=== PATIENT | male | born 1950 | race Caucasian/White ===

== ENCOUNTER 2018-05-06 16:04 | Outpatient (REF) | payer MEDICARE, SELFPAY ==
[2018-05-06 21:45] LABS: ALT 21 U/L (12-78); AST 16 U/L (15-37); Albumin 3.6 g/dL (3.4-5.0); Alkaline Phosphatase 74 U/L (46-116); Anion Gap 8.5 mmol/L (3-11); BUN 17 mg/dL (7-18); Bilirubin, Total 0.5 mg/dL (0.2-1.0); CO2 29.5 mmol/L (21.0-32.0); CREATININE 1.25 mg/dL (0.70-1.30); Calcium 9.5 mg/dL (8.5-10.1); Chloride 103 mmol/L (98-107); Cholesterol 180 mg/dL (50-200); Estimated GFR 57.79 (mL/min/1.73m2); Glucose 127 mg/dL (70-100); HDL Cholesterol 53 mg/dL (40-60); LDL CHOLESTEROL 111 mg/dL (<100); Potassium 4.4 mmol/L (3.5-5.1); Sodium 141 mmol/L (136-145); Total Protein 6.8 g/dL (6.4-8.2); Triglyceride 69 mg/dL (30-150)
[2018-05-08 11:08] LABS: Hepatitis C Ab w Rflx HCV PCR Negative (NEGAT)
== END 2018-05-06 16:24 ==
LOC: NCHCN 16:04
PROVIDERS: PCP Family Medicine; Visit Provider Family Medicine
DX: I10 Essential (primary) hypertension (principal); Z11.59 Encounter for screening for other viral diseases
CPT/HCPCS: 80053; 80061; 83721; 86803

== ENCOUNTER 2019-05-13 11:07 | Outpatient (REF) | payer MEDICARE, SELFPAY ==
[2019-05-13 22:34] LABS: Anion Gap 6.6 mmol/L (3-11); BUN 18 mg/dL (7-18); CO2 31.4 mmol/L (21.0-32.0); CREATININE 1.02 mg/dL (0.70-1.30); Calculated LDL 132 mg/dL (<100); Chloride 103 mmol/L (98-107); Cholesterol 198 mg/dL (<200); Glucose 101 mg/dL (74-106); HDL Cholesterol 54 mg/dL (40-60); Potassium 4.3 mmol/L (3.5-5.1); Sodium 141 mmol/L (136-145); TSH (W/Ref FT4) 2.74 uIU/mL (0.36-3.74); Triglyceride 61 mg/dL (<150); Vitamin B12 210 pg/mL (193-986)
[2019-05-13 22:46] LABS: Uric Acid 7.1 mg/dL (3.5-7.2)
== END 2019-05-13 11:27 ==
LOC: NCHCN 11:07
PROVIDERS: PCP Family Medicine; Visit Provider Family Medicine
DX: I10 Essential (primary) hypertension (principal); M10.00 Idiopathic gout, unspecified site; G60.9 Hereditary and idiopathic neuropathy, unspecified
CPT/HCPCS: 80048; 80061; 82607; 84443; 84550

== ENCOUNTER 2020-05-05 17:20 | Outpatient (REF) | payer MEDICARE, SELFPAY ==
[2020-05-05 21:08] LABS: ALT 28 U/L (16-63); AST 18 U/L (15-37); Albumin 3.8 g/dL (3.4-5.0); Alkaline Phosphatase 71 U/L (46-116); Anion Gap 8.4 mmol/L (3-11); BUN 11 mg/dL (7-18); Bilirubin, Total 0.5 mg/dL (0.2-1.0); CO2 26.6 mmol/L (21.0-32.0); CREATININE 0.99 mg/dL (0.70-1.30); Chloride 105 mmol/L (98-107); Glucose 112 mg/dL (74-106); Potassium 4.3 mmol/L (3.5-5.1); Sodium 140 mmol/L (136-145); Vitamin B12 427 pg/mL (193-986)
[2020-05-05 21:17] LABS: Uric Acid 6.4 mg/dL (3.5-7.2)
== END 2020-05-05 17:40 ==
LOC: NCHCN 17:20
PROVIDERS: PCP Family Medicine; Visit Provider Family Medicine
DX: I10 Essential (primary) hypertension (principal); M10.00 Idiopathic gout, unspecified site; E53.8 Deficiency of other specified B group vitamins
CPT/HCPCS: 80053; 82607; 84550

== ENCOUNTER 2020-05-29 11:28 | Emergency (ER) | payer MEDICARE, SELFPAY ==
[2020-05-29] VITALS (26 sets, daily range): BP systolic 128–144; BP diastolic 68–92; PULSE 90–98; RESP 11–28; TEMP 36.7–36.9; O2SAT 89–98
[2020-05-29] MEDS: Lidocaine 2% Jelly 6 ML SYR (11:25)
[2020-05-29] MEDS: Normal Saline 1,000 ML 1000 ML IV ×2 (11:30→13:19)
--- NOTE | 2020-05-29 11:30 | DI.CT_ITS ---
EXAM: CT HEAD WO CLINICAL HISTORY: AMS. TECHNIQUE: Imaging Protocol: Axial computed tomography images with coronal and sagittal reformatted images were created and reviewed COMPARISON: CT HEAD WITHOUT STROKE PROTOCOL from 08/15/2015 FINDINGS: There are no skull fractures nor fluid in the visualized paranasal sinuses. There is no evidence of intracranial hemorrhage, mass effect, or shift of midline structures. There are no extra-axial fluid collections. The ventricles are not enlarged or shifted and there is no blo od within the ventricular system nor within the basal cisterns. IMPRESSION: No acute intracranial findings on this noninfused CT scan of the brain. RADIATION DOSE DELIVERED: 857.14mGy.cm Total DLP DATA REPOSITORY: All CT scans at this facility are submitted to the National Radiology Data Registry (NRDR) Dose Index Registry (DIR) with the [employer] ([employer]). RADIATION OPTIMIZATION: All CT scans at this facility use at least one of these dose optimization te chniques: automated exposure control; mA and/or kV adjustment per patient size (includes targeted exa ms where dose is matched to clinical indication); or iterative reconstruction.
--- NOTE | 2020-05-29 11:30 | RT.EKG_ITS ---
APPROVED REPORT Exam: Resting ECG Patient Location: E HR:94 bpm ECG Measurements Heart Rate 94 AXIS SD 145 P 72 QRSd 82 QRS 28 QT 364 T 84 QTc 455 Conclusion Sinus rhythm...normal P axis, V-rate 60- 99 sinus rhythm at 94, normal axis, no STEMI, QTC 455, QRS 82, nondiagnostic EKG
--- NOTE | 2020-05-29 11:54 | W.ED.GENAD ---
Discharge Plan Discharge Details Chief Complaint: ColdExpose Primary Care Provider: Zenobia Penaloza ED Provider: Katie Rockwell Home Meds and New Rx's Prescriptions: No Action cyclobenzaprine 10 mg Tablet 10 mg PO HS PRNRF: 0 sildenafil [Viagra] 50 mg Tablet 50 mg PO DAILY PRNRF: 0 diltiazem HCl [Cardizem CD] 180 mg Capsule,Extended Release 24hr 180 mg PO DAILY RF: 0 citalopram 10 mg Tablet 10 mg PO DAILY RF: 0 indomethacin 50 mg Capsule 50 mg PO TID PRNRF: 0 lisinopril 40 mg Tablet 40 mg PO DAILY RF: 0 aspirin 81 MG tablet,chewable 81 mg PO DAILY RF: 0 Discharge Data Discharge Date/Time-TO BE ENTERED AT DEPARTURE: 05/29/20 14:05 Medical Decision Making Tony Noe is a 69-year-old man with a history of hypertension, heavy alcohol use in the past presenting to emergency department with cold exposure, altered mental status. On exam patient is alert and oriented to place, year, month, president but not the date. Grossly nonfocal. Bilateral fingers with significant edema, hemorrhagic bullae (some ruptured), cyanosis to mid hand. Cyanosis of bilateral toes, mild edema bilateral toes, some cyanosis into the foot, no bullae. DP pulses intact bilaterally. Concern for possible CVA versus overdose versus other, metabolic/lyte derangement, pneumonia, severe frostbite of hands, moderate to severe frostbite of toes. Exam/history at this time is not consistent with meningitis, acute aortic pathology, acute emergent cervical spine/thorax/abdominal trauma. EKG shows no STEMI, nondiagnostic. Plan for CT head, chest x-ray, screening labs, IV fluid hydration. Will hold on warm water baths for hands and feet given ruptured bullae, likely subacute nature of frostbite injury. Holding aspirin pending imaging studies. Labs reviewed, leukocytosis 16, creatinine 5.1, CK 6000. CT head negative for acute process. Chest x-ray shows right lower lobe infiltrate. Concern for aspiration pneumonia given HPI, plan for Zosyn. I discussed the patient with acute care surgery at [facility] who recommended no aspirin for frostbite at this time in case patient is deemed to be candidate for TPA upon arrival at [facility], no waterbath rewarming given time course. Request ED to ED transfer, no other emergent intervention at this time. I discussed patient with Dr. Seymour of emergency medicine, who accepts patient in transfer. Discussed plan with patient who is amenable to transfer. I also discussed plan for transfer with patient son over the phone. All questions answered. Clinical impression: janak PERDUEstbitjames Disposition: [facility] Medical Records Medical records reviewed: Yes I reviewed the patient's medical records. Imaging Data Radiologic Study: Attestation: I personally reviewed and interpreted this imaging study as follows: Radiologist's impression: EXAM: XR CHEST 2V PA LATERAL CLINICAL HISTORY: AMS. TECHNIQUE: 2D digital imaging was performed. COMPARISON: CR CHEST 2 VIEWS PA,LAT from 04/09/2016 FINDINGS: Heart size is normal. The mediastinum is not widened. There is vertically orientated platelike atelectasis in the right lung base. Most probably right lower lobe. No other pulmonary findings. No pleural effusions. No pneumothorax. IMPRESSION: Atelectasis versus early infiltrate right lower lobe. No obvious pleural effusions. EXAM: CT HEAD WO CLINICAL HISTORY: AMS. TECHNIQUE: Imaging Protocol: Axial computed tomography images with coronal and sagittal reformatted images were created and reviewed COMPARISON: CT HEAD WITHOUT STROKE PROTOCOL from 08/15/2015 FINDINGS: There are no skull fractures nor fluid in the visualized paranasal sinuses. There is no evidence of intracranial hemorrhage, mass effect, or shift of midline structures. There are no extra-axial fluid collections. The ventricles are not enlarged or shifted and there is no blood within the ventricular system nor within the basal cisterns. IMPRESSION: No acute intracranial findings on this noninfused CT scan of the brain. Lab Data Lab results reviewed: Yes I reviewed the patient's lab results. Labs: 05/29/20 13:05 Blood Blood Culture - Pending 05/29/20 12:50 Blood Blood Culture - Pending Laboratory Tests Range/Units 05/29/20 05/29/20 05/29/20 11:05 11:45 11:45 WBC (4.4-10.8) 10^3/uL RBC (4.36-5.78) 10^6/uL Hgb (13.5-17.5) g/dL Hct (40.0-50.0) % MCV (80-95) fL MCH (27.0-33.0) pg MCHC (32.0-36.0) % RDW (11.8-14.1) % Plt Count (130-400) 10^3/uL MPV (8.0-11.0) fL Immature Gran % Neutrophils % Lymphocytes % Monocytes % Eosinophils % Basophils % Nucleated RBC % % Absolute Neutrophils (1.2-6.7) 10^3/uL Absolute Lymphocytes (1.2-3.4) 10^3/uL Absolute Monocytes (0.1-0.8) 10^3/uL Absolute Eosinophils (0.0-0.7) 10^3/uL Absolute Basophils (0.0-0.2) 10^3/uL VBG Lactate (0.6-1.4) mmol/L 1.7 H Sodium (136-145) mmol/L 139 Potassium (3.5-5.1) mmol/L 4.7 Chloride (98-107) mmol/L 102 Carbon Dioxide (21.0-32.0) mmol/L 24.1 Anion Gap (3-11) mmol/L 12.9 H BUN (7-18) mg/dL 116 H* Creatinine (0.70-1.30) mg/dL 5.1 H* Estimated GFR/1.73 m2 (mL/min/1.73m2) 11.34 Glucose (74-106) mg/dL 121 H Calcium (8.5-10.1) mg/dL 8.1 L Total Bilirubin (0.2-1.0) mg/dL 0.5 AST (15-37) U/L 183 H ALT (16-63) U/L 77 H Alkaline Phosphatase (46-116) U/L 64 Creatine Kinase (39-308) U/L 6130 H Troponin I (<0.06) ng/mL < 0.05 Total Protein (6.4-8.2) g/dL 7.3 Albumin (3.4-5.0) g/dL 3.5 TSH (0.36-3.74) uIU/mL Urine Color (Yellow) Urine Clarity (Clear) Urine pH (5-8) Ur Specific [place] (1.005-1.025) Urine Protein (Negative) mg/dL Urine Ketones (Negative) mg/dL Urine Blood (Negative) Urine Nitrite (Negative) Urine Bilirubin (Negative) Urine Urobilinogen (Up TO 0.2) EU/dL Ur Leukocyte Esterase (Negative) Urine RBC (0-2) HPF Urine WBC (0-5) HPF Ur Epithelial Cells (Negative) HPF Urine Crystals (Negative) HPF Urine Bacteria (Negative) HPF Urine Casts (Negative) LPF Urine Mucus (Negative) Urine Other (Negative) Ur Culture Indicated? Urine Glucose (Negative) mg/dL Salicylates (<2.8) mg/dL Urine Opiates Screen (Negative) Urine Methadone Screen (Negative) Acetaminophen (10-30) ug/mL Ur Barbiturates Screen (Negative) Ur Tricyclics Screen (Negative) Ur Amphetamines Screen (Negative) U Benzodiazepines Scrn (Negative) Urine Cocaine Screen (Negative) Ur THC Screen (Negative) Ethyl Alcohol (<3) mg/dL Range/Units 05/29/20 05/29/20 05/29/20 11:45 11:45 11:45 WBC (4.4-10.8) 10^3/uL 16.79 H RBC (4.36-5.78) 10^6/uL 5.00 Hgb (13.5-17.5) g/dL 15.4 Hct (40.0-50.0) % 45.6 MCV (80-95) fL 91.2 MCH (27.0-33.0) pg 30.8 MCHC (32.0-36.0) % 33.8 RDW (11.8-14.1) % 13.0 Plt Count (130-400) 10^3/uL 219 MPV (8.0-11.0) fL 10.4 Immature Gran % 0.4 Neutrophils % 89.0 Lymphocytes % 4.1 Monocytes % 6.4 Eosinophils % 0.0 Basophils % 0.1 Nucleated RBC % % 0 Absolute Neutrophils (1.2-6.7) 10^3/uL 14.94 H Absolute Lymphocytes (1.2-3.4) 10^3/uL 0.69 L Absolute Monocytes (0.1-0.8) 10^3/uL 1.07 H Absolute Eosinophils (0.0-0.7) 10^3/uL 0.00 Absolute Basophils (0.0-0.2) 10^3/uL 0.02 VBG Lactate (0.6-1.4) mmol/L Sodium (136-145) mmol/L Potassium (3.5-5.1) mmol/L Chloride (98-107) mmol/L Carbon Dioxide (21.0-32.0) mmol/L Anion Gap (3-11) mmol/L BUN (7-18) mg/dL Creatinine (0.70-1.30) mg/dL Estimated GFR/1.73 m2 (mL/min/1.73m2) Glucose (74-106) mg/dL Calcium (8.5-10.1) mg/dL Total Bilirubin (0.2-1.0) mg/dL AST (15-37) U/L ALT (16-63) U/L Alkaline Phosphatase (46-116) U/L Creatine Kinase (39-308) U/L Troponin I (<0.06) ng/mL Total Protein (6.4-8.2) g/dL Albumin (3.4-5.0) g/dL TSH (0.36-3.74) uIU/mL 1.75 Urine Color (Yellow) Yellow Urine Clarity (Clear) Clear Urine pH (5-8) 5.5 Ur Specific [place] (1.005-1.025) >= 1.030 H Urine Protein (Negative) mg/dL 30 H Urine Ketones (Negative) mg/dL Negative Urine Blood (Negative) Moderate H Urine Nitrite (Negative) Negative Urine Bilirubin (Negative) Small H Urine Urobilinogen (Up TO 0.2) EU/dL 0.2 Ur Leukocyte Esterase (Negative) Negative Urine RBC (0-2) HPF 5-10 H Urine WBC (0-5) HPF 0-2 Ur Epithelial Cells (Negative) HPF Negative Urine Crystals (Negative) HPF Moderate amorphous Urine Bacteria (Negative) HPF Few Urine Casts (Negative) LPF 0-2 coarse granular Urine Mucus (Negative) Negative Urine Other (Negative) Few renal Ur Culture Indicated? No Urine Glucose (Negative) mg/dL Negative Salicylates (<2.8) mg/dL Urine Opiates Screen (Negative) Urine Methadone Screen (Negative) Acetaminophen (10-30) ug/mL Ur Barbiturates Screen (Negative) Ur Tricyclics Screen (Negative) Ur Amphetamines Screen (Negative) U Benzodiazepines Scrn (Negative) Urine Cocaine Screen (Negative) Ur THC Screen (Negative) Ethyl Alcohol (<3) mg/dL Range/Units 05/29/20 05/29/20 05/29/20 11:45 11:45 11:45 WBC (4.4-10.8) 10^3/uL RBC (4.36-5.78) 10^6/uL Hgb (13.5-17.5) g/dL Hct (40.0-50.0) % MCV (80-95) fL MCH (27.0-33.0) pg MCHC (32.0-36.0) % RDW (11.8-14.1) % Plt Count (130-400) 10^3/uL MPV (8.0-11.0) fL Immature Gran % Neutrophils % Lymphocytes % Monocytes % Eosinophils % Basophils % Nucleated RBC % % Absolute Neutrophils (1.2-6.7) 10^3/uL Absolute Lymphocytes (1.2-3.4) 10^3/uL Absolute Monocytes (0.1-0.8) 10^3/uL Absolute Eosinophils (0.0-0.7) 10^3/uL Absolute Basophils (0.0-0.2) 10^3/uL VBG Lactate (0.6-1.4) mmol/L Sodium (136-145) mmol/L Potassium (3.5-5.1) mmol/L Chloride (98-107) mmol/L Carbon Dioxide (21.0-32.0) mmol/L Anion Gap (3-11) mmol/L BUN (7-18) mg/dL Creatinine (0.70-1.30) mg/dL Estimated GFR/1.73 m2 (mL/min/1.73m2) Glucose (74-106) mg/dL Calcium (8.5-10.1) mg/dL Total Bilirubin (0.2-1.0) mg/dL AST (15-37) U/L ALT (16-63) U/L Alkaline Phosphatase (46-116) U/L Creatine Kinase (39-308) U/L Troponin I (<0.06) ng/mL Total Protein (6.4-8.2) g/dL Albumin (3.4-5.0) g/dL TSH (0.36-3.74) uIU/mL Urine Color (Yellow) Urine Clarity (Clear) Urine pH (5-8) Ur Specific [place] (1.005-1.025) Urine Protein (Negative) mg/dL Urine Ketones (Negative) mg/dL Urine Blood (Negative) Urine Nitrite (Negative) Urine Bilirubin (Negative) Urine Urobilinogen (Up TO 0.2) EU/dL Ur Leukocyte Esterase (Negative) Urine RBC (0-2) HPF Urine WBC (0-5) HPF Ur Epithelial Cells (Negative) HPF Urine Crystals (Negative) HPF Urine Bacteria (Negative) HPF Urine Casts (Negative) LPF Urine Mucus (Negative) Urine Other (Negative) Ur Culture Indicated? Urine Glucose (Negative) mg/dL Salicylates (<2.8) mg/dL < 2.8 Urine Opiates Screen (Negative) Negative Urine Methadone Screen (Negative) Negative Acetaminophen (10-30) ug/mL < 2 Ur Barbiturates Screen (Negative) Negative Ur Tricyclics Screen (Negative) Negative Ur Amphetamines Screen (Negative) Negative U Benzodiazepines Scrn (Negative) Negative Urine Cocaine Screen (Negative) Negative Ur THC Screen (Negative) Negative Ethyl Alcohol (<3) mg/dL < 3.0 ECG Data Attestation: I personally reviewed and interpreted this ECG (s) as follows: Interpretation: EKG shows sinus rhythm at 94, normal axis, no STEMI, QTC 455, QRS 82, nondiagnostic EKG HPI General Mode of arrival: EMS. Date/Time Provider Initiated Documentation: 05/29/20 11:41. Limitations to Documentation: altered mental status. Information obtained by: patient, family, EMS, RN notes reviewed and old records reviewed. HPI Narrative: Tony Noe is a 69-year-old man with a history of hypertension, gout presenting to the emergency department with altered mental status, found down. Per EMS patient was found with door open, feet and socks outside of the door, patient seated in the special doorway leaning against a washing machine. EMS states that patient's son had talked to the patient this morning, was concerned and called 911. Per EMS patient found with cyanotic toes, cyanotic swollen fingers which were wrapped in dry gauze. Patient reports that he fell going to the door when he heard the ambulance iron coming. He states he has been falling more frequently than usual over the past few days. Patient is unsure whether he had any prolonged cold exposure to his toes or fingers, but states that he was outside shoveling a lot. I discussed the patient with his son, Hardeep, over the phone, who reports the patient's brother a few days ago. He states that patient had texted him 2 days ago saying that he did not want to talk over the phone and needed some space to process what was happening. Patient son reports that he did not text to speak to his father yesterday. He states that when he spoke to his father this morning he seems to be very weak, his speech seems slow, and thus he called 911. Patient son also reports that patient attempted suicide 2 years ago by intentionally overdosing on hypertensive medication. Patient reports that he was concerned given patient's brother's recent passing that patient could have again attempted overdose. Patient son also reports that patient has a history of heavy alcohol use in the past, has stopped drinking, but patient is concerned that he may have begun drinking again. Patient denies any pain, shortness of breath, fever, cough, vomiting, diarrhea. He reports that his fingers and toes feel numb. Discussed patient history with patient again after talking to his son. Patient denies suicidality, intentional overdose or other self-harm. He again denies any recent alcohol intake. Patient states that he has been falling a lot over the past few days but is unsure why that has been occurring. He continues to be unsure of the nature of his cold exposure other than that he was shoveling quite a bit over the weekend. Patient states that he had his tetanus updated within the last 22 years at a pharmacy. Related Data Home Medications Medication Instructions Recorded Confirmed aspirin 81 mg PO DAILY 05/29/20 05/29/20 citalopram 10 mg PO DAILY 05/29/20 05/29/20 cyclobenzaprine 10 mg PO HS PRN 05/29/20 05/29/20 diltiazem HCl [Cardizem CD] 180 mg PO DAILY 05/29/20 05/29/20 indomethacin 50 mg PO TID PRN 05/29/20 05/29/20 lisinopril 40 mg PO DAILY 05/29/20 05/29/20 sildenafil [Viagra] 50 mg PO DAILY PRN 05/29/20 05/29/20 Allergies Allergy/AdvReac Type Severity Reaction Status Date / Time allopurinol Allergy Unknown Unverified 05/29/20 12:24 Review of Systems Narrative: Constitutional: denies fevers Eyes: denies eye pain ENT: denies ear pain, dental pain, sore throat Cardiovascular: denies chest pain Respiratory: denies SOB, cough GI: denies abdominal pain, vomiting, diarrhea : denies flank pain MSK: denies back pain, neck pain, arthralgias, myalgias Skin: denies rash Neuro: denies headaches, weakness, reports numbness in fingers and toes Psych: Denies suicidality or attempt to self-harm [facility] Social History Smoking/Tobacco Use Status: Former Tobacco Use Smoking risk assessment performed?: Yes Alcohol Intake: never Drug use: Occasionally Substance use type: marijuana Do you feel safe in your relationship?: Yes Exam Narrative Exam Narrative: Constitutional: Disheveled, acutely [id number], pleasant, conversing normally HENT: head atraumatic/normocephalic/normal inspection, mucous membranes dry, poor dentition throughout Eyes: conjunctiva normal, sclera normal, pupils 3mm b/l Neck: no stridor, normal ROM, trachea midline, no tenderness to palpation Chest: normal inspection Resp: normal work of breathing, LCTAB Cardio: normal rate, normal rhythm, no murmur appreciated GI: abdomen soft, non-tender, non-distended Back: normal inspection, no rash Skin: warm, dry, normal color, no rash Neuro: alert, oriented to person/place/year/president/month, not oriented to day of month, cranial nerves II through XII intact, motor 5 out of 5 throughout, normal tone Ext: All digits bilateral hands with significant edema, hemorrhagic bullae (some ruptured), cyanosis from fingertips to mid hand. Cyanosis of all toes bilaterally mild edema bilateral toes, some cyanosis into the feet b/l, no bullae. DP pulses intact bilaterally. Ranging fingers and toes. Psych: normal mood, normal affect Course Lab/Test Results Lab/Test Results: 05/29/20 11:41 Blood Blood Culture - Pending 05/29/20 11:41 Blood Blood Culture - Pending
[2020-05-29 11:57] LABS: Abs Immature Grans 0.07 10^3/uL (0.0-0.06); Absolute Basophil Count 0.02 10^3/uL (0.0-0.2); Absolute Lymphocyte Count 0.69 10^3/uL (1.2-3.4); Absolute Monocyte Count 1.07 10^3/uL (0.1-0.8); Absolute Neutrophil Count 14.94 10^3/uL (1.2-6.7); Basophils % 0.1; HCT 45.6 % (40.0-50.0); HGB 15.4 g/dL (13.5-17.5); Immature Grans % 0.4; Lactate 1.7 mmol/L (0.6-1.4); Lymphocytes % 4.1; MCH 30.8 pg (27.0-33.0); MCHC 33.8 % (32.0-36.0); MCV 91.2 fL (80-95); MPV 10.4 fL (8.0-11.0); Monocytes % 6.4; Nucleated RBC 0 %; Platelet Count 219 10^3/uL (130-400); RDW-SD 43.6 fL; WBC 16.79 10^3/uL (4.4-10.8)
[2020-05-29 11:58] LABS: Bilirubin Small (Negative); Blood Moderate (Negative); Clarity Clear (Clear); Glucose Negative (Negative); Ketones Negative (Negative); Leukocyte Esterase Negative (Negative); Nitrite Negative (Negative); Specific Gravity >= 1.030 (1.005-1.025); Urobilinogen 0.2 EU/dL (Up TO 0.2); pH 5.5 (5-8)
[2020-05-29 12:13] LABS: Bacteria Few HPF (Negative); Crystals Moderate Amorphous HPF (Negative); Epithelial Cells Negative HPF (Negative); Mucus Negative (Negative); Other Cells Few Renal (Negative); WBC 0-2 HPF (0-5)
[2020-05-29 12:14] LABS: C & S Indicated? No; Casts 0-2 Coarse Granular LPF (Negative)
--- NOTE | 2020-05-29 12:16 | DI.RAD_ITS ---
EXAM: XR CHEST 2V PA LATERAL CLINICAL HISTORY: AMS. TECHNIQUE: 2D digital imaging was performed. COMPARISON: CR CHEST 2 VIEWS PA,LAT from 04/09/2016 FINDINGS: Heart size is normal. The mediastinum is not widened. There is vertically orientated platelike atelectasis in the right lung base. Most probably right low er lobe. No other pulmonary findings. No pleural effusions. No pneumothorax. IMPRESSION: Atelectasis versus early infiltrate right lower lobe. No obvious pleural effusions. DATA REPOSITORY: RADIATION DOSE DELIVERED:
[2020-05-29 12:22] LABS: ALT 77 U/L (16-63); AST 183 U/L (15-37); Albumin 3.5 g/dL (3.4-5.0); Alkaline Phosphatase 64 U/L (46-116); Anion Gap 12.9 mmol/L (3-11); Bilirubin, Total 0.5 mg/dL (0.2-1.0); CO2 24.1 mmol/L (21.0-32.0); Calcium 8.1 mg/dL (8.5-10.1); Chloride 102 mmol/L (98-107); Estimated GFR 11.34 (mL/min/1.73m2); Glucose 121 mg/dL (74-106); Potassium 4.7 mmol/L (3.5-5.1); Sodium 139 mmol/L (136-145); TSH (W/Ref FT4) 1.75 uIU/mL (0.36-3.74); Total Protein 7.3 g/dL (6.4-8.2); Troponin I < 0.05 ng/mL (<0.06)
[2020-05-29 12:28] LABS: ETHANOL BLOOD < 3.0 mg/dL (<3)
[2020-05-29 12:30] LABS: BUN 116 mg/dL (7-18); CREATININE 5.1 mg/dL (0.70-1.30)
--- NOTE | 2020-05-29 12:38 | NUR.NOTE ---
Nursing Note: Son: Hardeep Cuellar . Aleja Plasencia
[2020-05-29 12:40] LABS: Salicylate < 2.8 mg/dL (<2.8)
[2020-05-29 12:50] LABS: Acetaminophen < 2 ug/mL (10-30)
[2020-05-29 13:02] LABS: *AMPHETAMINES SCREEN URINE Negative (Negative); *BARBITURATES SCREEN URINE Negative (Negative); *BENZODIAZEPINES SCREEN URINE Negative (Negative); Cannabinoids THC Negative (Negative); Cocaine Screen,Urine Negative (Negative); METHADONE URINE SCREEN Negative (Negative); OPIATES URINE SCREEN Negative (Negative)
[2020-05-29 13:07] LABS: Tricyclic Antidepressants Negative (Negative)
[2020-05-29] MEDS: PIPERACILLIN/TAZO 4.5 GM in Normal Saline 100 ML IVPB (13:09)
[2020-05-29 13:16] LABS: Creatine Kinase 6130 U/L (39-308)
== END 2020-05-29 14:05 ==
LOC: ER 13:36
PROVIDERS: Emergency Provider Student in an Organized Health Care Education/Training Program; PCP Family Medicine
DX: T33.532A Superficial frostbite of left finger(s), initial encounter (principal); T33.531A Superficial frostbite of right finger(s), initial encounter; T33.832A Superficial frostbite of left toe(s), initial encounter; T33.831A Superficial frostbite of right toe(s), initial encounter; X31.XXXA Exposure to excessive natural cold, initial encounter; N17.9 Acute kidney failure, unspecified; I10 Essential (primary) hypertension
CPT/HCPCS: 36410; 51701; 80053; 80307; 82550; 87040; 93005; 96361; 96365; 99285; 70450; 71046; 80320; 80329; 81003; 81015; 83605; 84443; 84484; 85025; 93010; J2543

== ENCOUNTER 2021-02-20 13:11 | Outpatient (REF) | payer MEDICARE, SELFPAY ==
[2021-02-20 16:05] LABS: HGB 12.7 g/dL (13.5-17.5)
== END 2021-02-20 13:12 | disposition home or self-care (01) ==
LOC: LBN 13:11
PROVIDERS: PCP Family Medicine; Visit Provider Family Medicine
DX: K92.1 Melena (principal)
CPT/HCPCS: 85018; 87070; 87205

== ENCOUNTER 2021-03-15 01:45 | Outpatient (CLI) | payer MEDICARE, MEDICAID, SELFPAY ==
--- NOTE | 2021-03-15 | DI.MRI_ITS ---
Exam(s) MR LOWER EXTREMITY LT WO/W EXAM: MR LOWER EXTREMITY LT WO/W CLINICAL HISTORY: CELLULITIS LT FOOT, L03.116,ULCER LT FOOT, L97.522 TECHNIQUE: Multiplanar multisequence MRI was performed. Both pre and post contrast infused sequence s were performed. Intravenous contrast injected was 18 mL [place] Field of view for this study was of the mid-distal foot. COMPARISON: Plain films of the left foot performed 02/13/2021 reviewed FINDINGS: SKIN/SUBCUTANEOUS TISSUE: There is a significant ulcer on the plantar lateral aspect of the foot subj acent to the 5th metatarsal head. MARROW:There is intraosseous signal abnormality in the head of the 5th metatarsal immediately adjacen t to ulcer which is hypo intense on noncontrast non fat sat T1 weighted sequence and hyperintense on T2 images. Bone edema and intraosseous enhancement is seen to the level of the 5th metatarsal neck. There is subluxation-dislocation of the 5th metatarsophalangeal joint. There is, however, no abnorma l signal within the proximal phalanx. There is no intraosseous signal abnormality in the other metatarsals nor in the phalanges. Subcutane ous signal abnormality is noted subjacent to the head and sesamoids of the great toe but without abno rmal intraosseous signal in the sesamoids nor within the great toe metatarsal head with the exception of some degenerative changes and joint effusion in the great toe metatarsophalangeal joint. EXTRAMUSCULAR SOFT TISSUES: IMPRESSION: as above. Findings are suspicious for osteomyelitis of the head-neck of the 5th metatarsal, this co ntiguous with the underlying ulcer in this region. However, please correlate with recent instrumenta tion at this level as this can cause similar signal abnormality and mimic osteomyelitis. DATA REPOSITORY:
[2021-03-15 10:32] LABS: CREATININE 1.1 mg/dL (0.70-1.30)
[2021-03-15] MEDS: Gadoterate meglumine 20 ML VIAL 18 ML IVP (10:57)
[2021-03-15] MEDS: Normal Saline Flush 10 ML SYR IVP (10:57)
== END 2021-03-15 02:05 ==
PROVIDERS: PCP Family Medicine; Visit Provider Student in an Organized Health Care Education/Training Program
DX: L03.116 Cellulitis of left lower limb (principal); L97.522 Non-pressure chronic ulcer of other part of left foot with fat layer exposed; Z01.812 Encounter for preprocedural laboratory examination; S93.125A Dislocation of metatarsophalangeal joint of left lesser toe(s), initial encounter; R93.7 Abnormal findings on diagnostic imaging of other parts of musculoskeletal system
CPT/HCPCS: 73720; 82565

== ENCOUNTER 2021-05-09 15:56 | Outpatient (REF) | payer MEDICARE, MEDICAID, SELFPAY ==
[2021-05-11 11:34] LABS: COVID-19 RT-PCR UVMMC Result Negative (Negative)
== END 2021-05-09 15:57 | disposition home or self-care (01) ==
LOC: LBN 15:56
PROVIDERS: PCP Family Medicine; Visit Provider Family Medicine
DX: Z20.822 Contact with and (suspected) exposure to COVID-19 (principal); R05.8 Other specified cough; R06.02 Shortness of breath
CPT/HCPCS: U0003; U0005

== ENCOUNTER 2021-05-23 15:25 | Outpatient (REF) | payer MEDICARE, MEDICAID, SELFPAY ==
[2021-05-23 15:45] LABS: Abs Immature Grans 0.03 10^3/uL (0.0-0.06); Absolute Basophil Count 0.03 10^3/uL (0.0-0.2); Absolute Eosinophil Count 0.15 10^3/uL (0.0-0.7); Absolute Lymphocyte Count 1.07 10^3/uL (1.2-3.4); Absolute Monocyte Count 0.46 10^3/uL (0.1-0.8); Absolute Neutrophil Count 7.31 10^3/uL (1.2-6.7); Basophils % 0.3; Eosinophils % 1.7; HCT 39.6 % (40.0-50.0); HGB 13.1 g/dL (13.5-17.5); Immature Grans % 0.3; Lymphocytes % 11.8; MCH 30.3 pg (27.0-33.0); MCHC 33.1 % (32.0-36.0); MCV 91.5 fL (80-95); MPV 10.3 fL (8.0-11.0); Monocytes % 5.1; Neutrophils % 80.8; Nucleated RBC 0 %; Platelet Count 199 10^3/uL (130-400); RBC 4.33 10^6/uL (4.36-5.78); RDW 12.4 % (11.8-14.1); WBC 9.05 10^3/uL (4.4-10.8)
[2021-05-23 15:50] LABS: Anion Gap 5.2 mmol/L (3-11); BUN 17 mg/dL (7-18); CO2 29.8 mmol/L (21.0-32.0); CREATININE 0.9 mg/dL (0.70-1.30); Calcium 8.9 mg/dL (8.5-10.1); Chloride 105 mmol/L (98-107); Glucose 83 mg/dL (74-106); Potassium 4.2 mmol/L (3.5-5.1); Sodium 140 mmol/L (136-145)
== END 2021-05-23 15:26 | disposition home or self-care (01) ==
LOC: LBN 15:25
PROVIDERS: PCP Family Medicine; Visit Provider Student in an Organized Health Care Education/Training Program
DX: L53.9 Erythematous condition, unspecified (principal); T34.5 Frostbite with tissue necrosis of wrist, hand, and finger(s); M02.30 Reiter's disease, unspecified site; D64.9 Anemia, unspecified
CPT/HCPCS: 80048; 85025; 86140

== ENCOUNTER 2021-06-06 14:43 | Outpatient (REF) | payer MEDICARE, MEDICAID, SELFPAY ==
[2021-06-06 17:46] LABS: Anion Gap 6.5 mmol/L (3-11); BUN 17 mg/dL (7-18); C-Reactive Protein 0.23 mg/dL (0.0-0.3); CO2 29.5 mmol/L (21.0-32.0); Calcium 8.8 mg/dL (8.5-10.1); Chloride 105 mmol/L (98-107); Glucose 90 mg/dL (74-106); Sodium 141 mmol/L (136-145)
[2021-06-06 17:53] LABS: Abs Immature Grans 0.02 10^3/uL (0.0-0.06); Absolute Basophil Count 0.03 10^3/uL (0.0-0.2); Absolute Eosinophil Count 0.21 10^3/uL (0.0-0.7); Absolute Lymphocyte Count 1.25 10^3/uL (1.2-3.4); Absolute Monocyte Count 0.37 10^3/uL (0.1-0.8); Absolute Neutrophil Count 5.35 10^3/uL (1.2-6.7); Basophils % 0.4; Eosinophils % 2.9; HCT 35.2 % (40.0-50.0); HGB 11.3 g/dL (13.5-17.5); Immature Grans % 0.3; Lymphocytes % 17.3; MCH 30.1 pg (27.0-33.0); MCHC 32.1 % (32.0-36.0); MCV 93.9 fL (80-95); MPV 9.6 fL (8.0-11.0); Monocytes % 5.1; Nucleated RBC 0 %; Platelet Count 253 10^3/uL (130-400); RBC 3.75 10^6/uL (4.36-5.78); RDW 12.8 % (11.8-14.1); RDW-SD 43.7 fL; WBC 7.23 10^3/uL (4.4-10.8)
== END 2021-06-06 14:44 | disposition home or self-care (01) ==
LOC: LBN 14:43
PROVIDERS: PCP Family Medicine; Visit Provider Student in an Organized Health Care Education/Training Program
DX: T34.8 Frostbite with tissue necrosis of ankle, foot, and toe(s) (principal); T34.821 Frostbite with tissue necrosis of right foot; T34.5 Frostbite with tissue necrosis of wrist, hand, and finger(s); M02.30 Reiter's disease, unspecified site
CPT/HCPCS: 80048; 85025; 86140

== ENCOUNTER 2021-11-12 20:58 | Emergency (ER) | payer MEDICARE, MEDICAID, SELFPAY ==
[2021-11-12 21:09] VITALS: BP 104/76; PULSE 99; RESP 16; TEMP 37.1; O2SAT 99
--- NOTE | 2021-11-12 21:32 | ED.GENADUL_ITS ---
Discharge Plan Disposition Patient Disposition: HOME Condition: Stable Discharge Details Clinical Impression: Cerumen impaction Primary Care Provider: Zenobia Penaloza ED Provider: Georgina Faustin Home Meds and New Rx's Prescriptions: Continued cyclobenzaprine 10 mg Tablet 10 mg PO HS PRN sildenafil [Viagra] 50 mg Tablet 50 mg PO DAILY PRN diltiazem HCl [Cardizem CD] 180 mg Capsule,Extended Release 24hr 180 mg PO DAILY citalopram 10 mg Tablet 10 mg PO DAILY indomethacin 50 mg Capsule 50 mg PO TID PRN lisinopril 40 mg Tablet 40 mg PO DAILY aspirin 81 MG tablet,chewable 81 mg PO DAILY gabapentin 300 mg capsule 300 mg PO BID melatonin 10 mg Capsule 10 mg PO .QHS Discharge Instructions Additional Instructions: You may want to use Debrox drops in the next several months to help control the wax in your ears Irrigate after warm water Please return earlier should you have new or worsening complaints Referrals: Zenobia Penaloza [Primary Care Provider] - Discharge Data Discharge Date/Time-TO BE ENTERED AT DEPARTURE: 11/12/21 22:21 Medical Decision Making Patient tolerated cerumen disimpaction bilaterally without incident Will use Debrox in the future Return precautions discussed and patient expressed understanding Discharged home in stable condition stable he will Medical Records Medical records reviewed: Yes I reviewed the patient's medical records. Lab Data Lab results reviewed: Yes I reviewed the patient's lab results. HPI General Date/Time Provider Initiated Documentation: 11/12/21 21:25 . HPI Narrative: This 71-year-old male presents with report of decreased hearing with lightheadedness to bilateral ears. Denies any headache, vision change, strength or sensation change. He states that he feels as though his. Steadily declined in the past month. Denies any pain complaints. Denies any falls or injuries. Denies strength or sensation change currently. Related Data Home Medications Medication Instructions Recorded Confirmed aspirin 81 mg chewable tablet 81 mg PO DAILY 05/29/20 11/12/21 citalopram 10 mg tablet 10 mg PO DAILY 05/29/20 11/12/21 cyclobenzaprine 10 mg tablet 10 mg PO HS PRN 05/29/20 11/12/21 diltiazem HCl 180 mg 180 mg PO DAILY 05/29/20 11/12/21 capsule,extended release 24 hr (Cardizem CD) indomethacin 50 mg capsule 50 mg PO TID PRN 05/29/20 11/12/21 lisinopril 40 mg tablet 40 mg PO DAILY 05/29/20 11/12/21 sildenafil 50 mg tablet (Viagra) 50 mg PO DAILY PRN 05/29/20 11/12/21 gabapentin 300 mg capsule 300 mg PO BID 11/12/21 11/12/21 melatonin 10 mg capsule 10 mg PO .QHS 11/12/21 11/12/21 Allergies Allergy/AdvReac Type Severity Reaction Status Date / Time allopurinol Allergy Unknown Unverified 11/12/21 21:12 General Stated Complaint: EarProblem ANNABELLE: 1 Review of Systems All systems reviewed & are unremarkable except as noted in HPI and below PFSH All Active Problems (Updated 11/12/21 @ 22:13 by LAMONT Kebede) Cerumen impaction (Acute) Social History Smoking/Tobacco Use Status: Former Tobacco Use Smoking risk assessment performed?: Yes Alcohol Intake: never Drug use: Occasionally Substance use type: marijuana Do you feel safe in your relationship?: Yes Exam Const General: cooperative, comfortable and no acute distress HENMT Other: Cerumen impaction bilaterally Eyes Pupils: PERRL Resp Effort & Inspection: normal respiratory effort Cardio Rate: regular rate Skin General skin exam: no rashes or lesions noted Neuro General: patient alert and patient oriented x3 Course Vital Signs Vital signs: Vital Signs Temperature 37.1 C 11/12/21 21:09 Pulse 19 L 11/12/21 21:09 Respiratory Rate 16 11/12/21 21:09 Blood Pressure 104/76 11/12/21 21:09 Pulse Oximetry 99 11/12/21 21:09 Temperature 37.1 C 11/12/21 21:09 Temperature Source Temporal Artery Scan 11/12/21 21:09 Pulse 19 L 11/12/21 21:09 Respiratory Rate 16 11/12/21 21:09 Respiratory Effort 11/12/21 21:09 Blood Pressure 104/76 11/12/21 21:09 Blood Pressure Position Sitting 11/12/21 21:09 Pulse Oximetry 99 11/12/21 21:09 Oxygen Delivery Method Room Air 11/12/21 21:09 Oxygen Flow Rate 0 11/12/21 21:09 Pain Level 0 11/12/21 21:09 Procedures Ear Wax Removal Both Ears: Cerumenolytic Used: 5-10% Sodium Bicarb solution Results: Re-examined: cerumen removed completely TM Visible: TM(s) intact, normal appearance Ear Canal: atraumatic Patient Tolerated Procedure: well Complications: no problems Technique: ear canal irrigated
== END 2021-11-12 22:21 | disposition home or self-care (01) ==
PROVIDERS: Emergency Provider Physician Assistant; PCP Family Medicine
DX: H61.23 Impacted cerumen, bilateral (principal)
CPT/HCPCS: 99283

== ENCOUNTER 2022-01-14 17:27 | Emergency (ER) | payer MEDICARE, MEDICAID, SELFPAY ==
[2022-01-14] VITALS (25 sets, daily range): BP systolic 152–169; BP diastolic 72–83; PULSE 45–108; RESP 8–30; TEMP 36.6; O2SAT 85–100
--- NOTE | 2022-01-14 17:26 | ED.GENADUL_ITS ---
Discharge Plan Disposition Patient Disposition: HOME Condition: Improving Discharge Details Chief Complaint: GenMedical Clinical Impression: Diarrhea Primary Care Provider: Zenobia Penaloza ED Provider: Mj Portillo Home Meds and New Rx's Prescriptions: No Action cyclobenzaprine 10 mg Tablet 10 mg PO HS PRN sildenafil [Viagra] 50 mg Tablet 50 mg PO DAILY PRN diltiazem HCl [Cardizem CD] 180 mg Capsule,Extended Release 24hr 180 mg PO DAILY citalopram 10 mg Tablet 10 mg PO DAILY indomethacin 50 mg Capsule 50 mg PO TID PRN lisinopril 40 mg Tablet 40 mg PO DAILY aspirin 81 MG tablet,chewable 81 mg PO DAILY gabapentin 300 mg capsule 300 mg PO BID melatonin 10 mg Capsule 10 mg PO .QHS Discharge Instructions Instructions: Acute Diarrhea (ED) Additional Instructions: Please follow-up with your primary care physician. Please return to the emergency department for any worsening symptoms. Medical Decision Making 71-year-old male presents with 1 week of loose stool and fatigue, approximately 2 loose brown bowel movements per day, no blood, not tarry, no recent antibiotic use no recent hospitalization no animal exposure at home, alert oriented afebrile nontoxic nonperitoneal, consider viral diarrhea versus bacterial colitis versus ova/parasites versus food related versus less likely C. difficile or GI bleed. Will obtain basic labs to assess electrolytes and blood counts. Will provide fluid hydration given slight drying of oral mucosa and dry skin. Likely symptoms of fatigue related to mild dehydration in setting of diarrhea. Disposition likely home with close follow-up. 20: 29 patient resting comfortably no acute distress tolerating p.o. Hemodynamically stable. Had 1 soft bowel movement in department. Sent for ova and parasite. Patient to follow with primary care physician. Will be provided with care management follow-up. Home care instructions and return precautions given. HPI General Date/Time Provider Initiated Documentation: 01/14/22 17:27 . 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 Denies blood in stool denies dark tarry stool. Denies nausea or vomiting. No recent hospitalizations, no recent antibiotics, no animals at home Related Data Home Medications Medication Instructions Recorded Confirmed aspirin 81 mg chewable tablet 81 mg PO DAILY 05/29/20 01/14/22 citalopram 10 mg tablet 10 mg PO DAILY 05/29/20 01/14/22 cyclobenzaprine 10 mg tablet 10 mg PO HS PRN 05/29/20 01/14/22 diltiazem HCl 180 mg 180 mg PO DAILY 05/29/20 01/14/22 capsule,extended release 24 hr (Cardizem CD) indomethacin 50 mg capsule 50 mg PO TID PRN 05/29/20 01/14/22 lisinopril 40 mg tablet 40 mg PO DAILY 05/29/20 01/14/22 sildenafil 50 mg tablet (Viagra) 50 mg PO DAILY PRN 05/29/20 01/14/22 gabapentin 300 mg capsule 300 mg PO BID 11/12/21 01/14/22 melatonin 10 mg capsule 10 mg PO .QHS 11/12/21 01/14/22 Allergies Allergy/AdvReac Type Severity Reaction Status Date / Time allopurinol Allergy Unknown Unverified 11/12/21 21:12 General Stated Complaint: GenMedical ANNABELLE: 3 Review of Systems Narrative: Review of Systems Constitutional: negative Eyes: negative ENT: negative Cardiovascular: negative Respiratory: negative Gastrointestinal: Diarrhea : negative Musculoskeletal: negative Skin: negative Neurologic: negative Psych: negative PFSH All Active Problems (Updated 01/14/22 @ 20:31 by Mj Portillo MD) Diarrhea (Acute) Social History Smoking/Tobacco Use Status: Former Tobacco Use Smoking risk assessment performed?: Yes Alcohol Intake: never Drug use: Occasionally Substance use type: marijuana Do you feel safe at home: Yes Do you feel safe in your relationship?: Yes Exam Narrative Exam Narrative: Physical Examination General: alert, awake, cooperative, resting comfortably, no acute distress HEENT: normocephalic, atraumatic; PERRL, EOM intact, conjunctiva normal; no nasal discharge; moist mucous membranes, slight drying of oral mucosa Neck: supple, trachea midline; full ROM Chest: normal to inspection Respiratory: normal respiratory effort, speaking in full sentences, clear to auscultation, no wheezing, rales or rhonchi Cardiac: regular rate, regular rhythm, S1S2 intact, no murmurs rubs or gallops GI: abdomen soft, non-tender, non-distended; no palpable mass or hepatosplenome joanna Skin: Slightly dry, no lesions, rashes or trauma appreciated Neuro: AAOx3, normal speech, moving all extremities Psych: Appropriate mood and affect Course Vital Signs Vital signs: Vital Signs Temperature 36.6 C 01/14/22 16:58 Pulse 56 L 01/14/22 16:58 Respiratory Rate 18 01/14/22 16:58 Blood Pressure 169/83 H 01/14/22 16:58 Pulse Oximetry 99 01/14/22 16:58 Temperature 36.6 C 01/14/22 16:58 Temperature Source Tympanic 01/14/22 16:58 Pulse 56 L 01/14/22 16:58 Respiratory Rate 18 01/14/22 16:58 Respiratory Effort 01/14/22 17:06 Respiratory Depth Normal 01/14/22 17:06 Respiratory Pattern Normal 01/14/22 17:06 Blood Pressure 169/83 H 01/14/22 16:58 Blood Pressure Position Supine 01/14/22 16:58 Pulse Oximetry 99 01/14/22 16:58 Oxygen Delivery Method Room Air 01/14/22 16:58 Oxygen Flow Rate 0 01/14/22 16:58 Pain Level 5 01/14/22 16:58
[2022-01-14] MEDS: Normal Saline 1,000 ML 1000 ML IV (17:36)
[2022-01-14 17:40] LABS: Abs Immature Grans 0.02 10^3/uL (0.0-0.06); Absolute Basophil Count 0.03 10^3/uL (0.0-0.2); Absolute Eosinophil Count 0.18 10^3/uL (0.0-0.7); Absolute Lymphocyte Count 1.05 10^3/uL (1.2-3.4); Absolute Monocyte Count 0.29 10^3/uL (0.1-0.8); Absolute Neutrophil Count 3.51 10^3/uL (1.2-6.7); Basophils % 0.6; Eosinophils % 3.5; HCT 43.1 % (40.0-50.0); HGB 14.6 g/dL (13.5-17.5); Immature Grans % 0.4; Lymphocytes % 20.7; MCH 30.3 pg (27.0-33.0); MCHC 33.9 % (32.0-36.0); MCV 89 fL (80-95); MPV 10.1 fL (8.0-11.0); Monocytes % 5.7; Neutrophils % 69.1; Platelet Count 234 10^3/uL (130-400); RBC 4.82 10^6/uL (4.36-5.78); RDW-SD 39.1 fL; WBC 5.08 10^3/uL (4.4-10.8)
[2022-01-14 18:00] LABS: ALT 17 U/L (16-63); AST 13 U/L (15-37); Albumin 3.9 g/dL (3.4-5.0); Alkaline Phosphatase 75 U/L (46-116); Anion Gap 6.1 mmol/L (3-11); BUN 14 mg/dL (7-18); CO2 32.9 mmol/L (21.0-32.0); CREATININE 1.1 mg/dL (0.70-1.30); Calcium 9.4 mg/dL (8.5-10.1); Chloride 100 mmol/L (98-107); Estimated GFR 72.22 (mL/min/1.73m2); Glucose 95 mg/dL (74-106); Potassium 3.9 mmol/L (3.5-5.1); Sodium 139 mmol/L (136-145); Total Protein 7.6 g/dL (6.4-8.2)
--- NOTE | 2022-01-14 20:39 | NUR.NOTE ---
Referral to Care Management to do a general f/u and to determine if Home Health services are appropriate.Nursing Note:
[2022-01-16 10:31] LABS: Campylobacter PCR Negative (Negative); Salmonella PCR Negative (Negative); Shiga Toxin PCR Negative (Negative); Shigella/Enteroinvasive Ecoli Negative (Negative)
== END 2022-01-14 21:25 | disposition home or self-care (01) ==
LOC: ER 20:38
PROVIDERS: Emergency Provider Emergency Medicine; PCP Family Medicine
DX: R19.7 Diarrhea, unspecified (principal); R53.83 Other fatigue; Z79.82 Long term (current) use of aspirin
CPT/HCPCS: 80053; 87505; 96360; 96361; 99284; 85025; 87177

== ENCOUNTER 2022-04-02 14:41 | Outpatient (REF) | payer MEDICARE, MEDICAID, SELFPAY ==
[2022-04-02 16:58] LABS: Abs Immature Grans 0.01 10^3/uL (0.0-0.06); Absolute Basophil Count 0.03 10^3/uL (0.0-0.2); Absolute Eosinophil Count 0.21 10^3/uL (0.0-0.7); Absolute Lymphocyte Count 1.25 10^3/uL (1.2-3.4); Absolute Monocyte Count 0.29 10^3/uL (0.1-0.8); Absolute Neutrophil Count 3.32 10^3/uL (1.2-6.7); Basophils % 0.6; Eosinophils % 4.1; HCT 37.4 % (40.0-50.0); HGB 12.2 g/dL (13.5-17.5); Immature Grans % 0.2; Lymphocytes % 24.5; MCH 31.1 pg (27.0-33.0); MCHC 32.6 % (32.0-36.0); MCV 95 fL (80-95); MPV 10.7 fL (8.0-11.0); Monocytes % 5.7; Neutrophils % 64.9; Platelet Count 222 10^3/uL (130-400); RBC 3.92 10^6/uL (4.36-5.78); RDW 12.3 % (11.8-14.1); WBC 5.11 10^3/uL (4.4-10.8)
[2022-04-02 17:47] LABS: Iron 82 ug/dL (65-175); Total Iron Binding Capacity 232 ug/dL (250-450); Transferrin Sat 35 % (20-55)
[2022-04-02 17:58] LABS: Hemoglobin A1C 5.1 % (<5.7)
[2022-04-02 17:59] LABS: ALT 20 U/L (16-63); AST 15 U/L (15-37); Albumin 3.2 g/dL (3.4-5.0); Alkaline Phosphatase 102 U/L (46-116); Anion Gap 4.9 mmol/L (3-11); BUN 14 mg/dL (7-18); Bilirubin, Total 0.4 mg/dL (0.2-1.0); CO2 33.1 mmol/L (21.0-32.0); Calcium 8.4 mg/dL (8.5-10.1); Chloride 104 mmol/L (98-107); Estimated GFR 80.97 (mL/min/1.73m2); Glucose 99 mg/dL (74-106); Magnesium 1.9 mg/dL (1.8-2.4); NT-proBNP 194 pg/mL (<300); Potassium 3.9 mmol/L (3.5-5.1); Sodium 142 mmol/L (136-145); TSH (W/Ref FT4) 2.12 uIU/mL (0.36-3.74); Total Protein 6.2 g/dL (6.4-8.2); Uric Acid 4.8 mg/dL (3.5-7.2)
[2022-04-02 18:12] LABS: Vitamin D 25 Total 36.5 ng/mL (30-100)
[2022-04-02 18:43] LABS: C-Reactive Protein < 0.05 mg/dL (0.0-0.3); Ferritin 104 ng/mL (26-388); Folate 19.3 ng/mL (8.6-20.0); Vitamin B12 321 pg/mL (193-986)
== END 2022-04-02 14:42 | disposition home or self-care (01) ==
LOC: LBN 14:41
PROVIDERS: PCP Family Medicine; Visit Provider Nurse Practitioner Gerontology
DX: R68.89 Other general symptoms and signs (principal)
CPT/HCPCS: 80053; 82306; 82607; 82728; 82746; 83036; 83540; 83550; 83735; 83880; 84443; 84550; 85025; 86140

== ENCOUNTER 2022-08-05 18:45 | Outpatient (REF) | payer MEDICARE, MEDICAID, SELFPAY ==
[2022-08-05 17:33] LABS: Abs Immature Grans 0.02 10^3/uL (0.0-0.06); Absolute Basophil Count 0.03 10^3/uL (0.0-0.2); Absolute Lymphocyte Count 1.42 10^3/uL (1.2-3.4); Absolute Monocyte Count 0.58 10^3/uL (0.1-0.8); Absolute Neutrophil Count 5.03 10^3/uL (1.2-6.7); Basophils % 0.4; Eosinophils % 5.3; HCT 39.7 % (40.0-50.0); HGB 13.1 g/dL (13.5-17.5); Immature Grans % 0.3; MCH 29.8 pg (27.0-33.0); MCV 90 fL (80-95); MPV 9.7 fL (8.0-11.0); Monocytes % 7.8; Neutrophils % 67.2; Platelet Count 278 10^3/uL (130-400); RDW 12.8 % (11.8-14.1); RDW-SD 42.1 fL; WBC 7.48 10^3/uL (4.4-10.8)
[2022-08-05 18:08] LABS: ALT 28 U/L (16-63); AST 26 U/L (15-37); Albumin 3.9 g/dL (3.4-5.0); Alkaline Phosphatase 82 U/L (46-116); Anion Gap 8.2 mmol/L (3-11); BUN 21 mg/dL (7-18); Bilirubin, Total 0.6 mg/dL (0.2-1.0); CO2 27.8 mmol/L (21.0-32.0); CREATININE 1.4 mg/dL (0.70-1.30); Calcium 9.1 mg/dL (8.5-10.1); Chloride 106 mmol/L (98-107); Estimated GFR 54.07 (mL/min/1.73m2); Glucose 105 mg/dL (74-106); NT-proBNP 186 pg/mL (<300); Potassium 4.2 mmol/L (3.5-5.1); Sodium 142 mmol/L (136-145); Total Protein 7.5 g/dL (6.4-8.2)
== END 2022-08-05 18:46 | disposition home or self-care (01) ==
LOC: LBN 18:45
PROVIDERS: PCP Family Medicine; Visit Provider Nurse Practitioner Gerontology
DX: I10 Essential (primary) hypertension (principal); D64.9 Anemia, unspecified; R53.83 Other fatigue; R06.89 Other abnormalities of breathing; E79.0 Hyperuricemia without signs of inflammatory arthritis and tophaceous disease; R68.89 Other general symptoms and signs
CPT/HCPCS: 80053; 83880; 84550; 85025

== ENCOUNTER 2022-08-06 19:16 | Outpatient (REF) | payer MEDICARE, MEDICAID, SELFPAY ==
[2022-08-06 20:53] LABS: *AMPHETAMINES SCREEN URINE Negative (Negative); *BARBITURATES SCREEN URINE Negative (Negative); *BENZODIAZEPINES SCREEN URINE Negative (Negative); Cannabinoids THC Positive (Negative); Cocaine Screen,Urine Negative (Negative); METHADONE URINE SCREEN Negative (Negative); OPIATES URINE SCREEN Positive (Negative)
[2022-08-06 20:58] LABS: Tricyclic Antidepressants Negative (Negative)
[2022-08-06 21:27] LABS: Bilirubin Negative (Negative); Blood Negative (Negative); Clarity Sl Cloudy (Clear); Glucose Negative (Negative); Ketones Negative (Negative); Leukocyte Esterase Negative (Negative); Nitrite Negative (Negative); Specific Gravity >= 1.030 (1.005-1.025); Urobilinogen 0.2 mg/dL (Up to 0.2); pH 5.5 (5-8)
[2022-08-06 21:49] LABS: Creatine Kinase 327 U/L (39-308)
[2022-08-06 22:27] LABS: Vitamin B12 255 pg/mL (193-986)
[2022-08-08 09:29] LABS: Hepatitis C Ab w Rflx HCV PCR Negative (Negative)
[2022-08-08 11:03] LABS: Syphilis Serology (RPR) Negative (Negative)
[2022-08-08 11:34] LABS: Lyme Ab w Rflx to Lyme Confirm Negative (Negative)
[2022-08-08 16:00] LABS: ANA Interpretation Positive (Negative); ANA Titer Pattern 1:160 Speckled
== END 2022-08-06 19:17 | disposition home or self-care (01) ==
LOC: LBN 19:16
PROVIDERS: PCP Family Medicine; Visit Provider Nurse Practitioner Gerontology
DX: R68.89 Other general symptoms and signs (principal)
CPT/HCPCS: 80307; 82550; 86803; 81003; 82607; 84443; 86038; 86592; 86618; 87086

== ENCOUNTER 2022-08-07 17:39 | Outpatient (REF) | payer MEDICARE, MEDICAID, SELFPAY ==
[2022-08-07 18:45] LABS: Bilirubin Negative (Negative); Blood Negative (Negative); Clarity Clear (Clear); Glucose Negative (Negative); Ketones Negative (Negative); Leukocyte Esterase Negative (Negative); Nitrite Negative (Negative); Specific Gravity 1.025 (1.005-1.025); Urobilinogen 0.2 mg/dL (Up to 0.2)
[2022-08-07 18:55] LABS: *AMPHETAMINES SCREEN URINE Negative (Negative); *BARBITURATES SCREEN URINE Negative (Negative); *BENZODIAZEPINES SCREEN URINE Negative (Negative); Cannabinoids THC Positive (Negative); Cocaine Screen,Urine Negative (Negative); METHADONE URINE SCREEN Negative (Negative); OPIATES URINE SCREEN Negative (Negative)
[2022-08-07 18:58] LABS: Tricyclic Antidepressants Negative (Negative)
== END 2022-08-07 17:40 | disposition home or self-care (01) ==
LOC: LBN 17:39
PROVIDERS: PCP Family Medicine; Visit Provider Nurse Practitioner Gerontology
DX: R68.89 Other general symptoms and signs (principal)
CPT/HCPCS: 80307; 81003

== ENCOUNTER 2022-08-21 01:03 | Outpatient (CLI) | payer MEDICARE, MEDICAID, SELFPAY ==
--- NOTE | 2022-08-21 11:15 | DI.CT_ITS ---
Exam(s) CT HEAD WO EXAM: CT HEAD WO CLINICAL HISTORY: DEMENTIA, VASCULAR U/T ETOH, LOC-MANIC. TECHNIQUE: Imaging Protocol: Axial computed tomography images with coronal and sagittal reformatted images were created and reviewed COMPARISON: CT CT HEAD WO from 05/29/2020 FINDINGS: Ventricles and Extra axial spaces: Normal in size and morphology for the patient's age. Hemorrhage: None. Cerebral parenchyma: Normal for age. Midline shift: None. Brainstem/Cerebellum: Normal. Calvarium: Normal. Visualized Paranasal sinuses/Mastoids: Clear. Soft Tissues: Unremarkable. IMPRESSION: No acute intracranial process. RADIATION DOSE DELIVERED: 831.99mGy.cm Total DLP DATA REPOSITORY: All CT scans at this facility are submitted to the National Radiology Data Registry (NRDR) Dose Index Registry (DIR) with the [employer] ([employer]). RADIATION OPTIMIZATION: All CT scans at this facility use at least one of these dose optimization te chniques: automated exposure control; mA and/or kV adjustment per patient size (includes targeted exa ms where dose is matched to clinical indication); or iterative reconstruction.
== END 2022-08-21 01:23 ==
LOC: DI 01:03
PROVIDERS: PCP Family Medicine; Visit Provider Nurse Practitioner Gerontology
DX: F03.918 Unspecified dementia, unspecified severity, with other behavioral disturbance (principal); Z13.89 Encounter for screening for other disorder
CPT/HCPCS: 70450

== ENCOUNTER 2022-08-28 16:36 | Outpatient (REF) | payer MEDICARE, MEDICAID, SELFPAY ==
[2022-08-30 15:59] LABS: RNP Ab, IgG 2.2 Units (<20.0); SS-A Antibody 1.3 Units (<20.0); SS-B (La) Ab, IgG 6.3 Units (<20.0); Sm (Smith) Ab, IgG 2.5 Units (<20.0)
== END 2022-08-28 16:37 | disposition home or self-care (01) ==
LOC: LBN 16:36
PROVIDERS: PCP Family Medicine; Visit Provider Nurse Practitioner Gerontology
DX: I11.0 Hypertensive heart disease with heart failure (principal); F32.89 Other specified depressive episodes; G62.9 Polyneuropathy, unspecified; R68.89 Other general symptoms and signs
CPT/HCPCS: 86235

== ENCOUNTER 2023-08-19 16:48 | Outpatient (REF) | payer MEDICARE, MEDICAID, SELFPAY ==
[2023-08-19 20:38] LABS: HCT 43.3 % (40.0-50.0); HGB 14.5 g/dL (13.5-17.5); MCH 30.9 pg (27.0-33.0); MCHC 33.5 % (32.0-36.0); MCV 92 fL (80-95); MPV 9.5 fL (8.0-11.0); Platelet Count 238 10^3/uL (130-400); RDW 12.3 % (11.8-14.1); RDW-SD 41.8 fL; WBC 7.61 10^3/uL (4.4-10.8)
[2023-08-19 20:57] LABS: Anion Gap 5.9 mmol/L (3-11); BUN 13 mg/dL (7-18); CO2 31.1 mmol/L (21.0-32.0); CREATININE 1.1 mg/dL (0.70-1.30); Calcium 9.1 mg/dL (8.5-10.1); Chloride 103 mmol/L (98-107); Estimated GFR 71.77 (mL/min/1.73m2); Glucose 95 mg/dL (74-106); Potassium 4.4 mmol/L (3.5-5.1); Sodium 140 mmol/L (136-145); Uric Acid 6.4 mg/dL (3.5-7.2)
[2023-08-19 21:26] LABS: Calculated LDL 125 mg/dL (<100); Cholesterol 194 mg/dL (<200); HDL Cholesterol 41 mg/dL (40-60); Triglyceride 141 mg/dL (<150)
== END 2023-08-19 16:49 | disposition home or self-care (01) ==
LOC: NCHCN 16:48
PROVIDERS: PCP Family Medicine; Visit Provider Family Medicine
DX: I10 Essential (primary) hypertension (principal); Z13.220 Encounter for screening for lipoid disorders; D64.9 Anemia, unspecified; M10.9 Gout, unspecified
CPT/HCPCS: 80048; 80061; 85027; 84550

== ENCOUNTER 2024-06-03 12:57 | Outpatient (REF) | payer MEDICARE, MEDICAID, SELFPAY ==
[2024-06-03 16:09] LABS: Anion Gap 5.5 mmol/L (3-11); BUN 16 mg/dL (7-18); CO2 31.5 mmol/L (21.0-32.0); CREATININE 1.2 mg/dL (0.70-1.30); Calcium 8.8 mg/dL (8.5-10.1); Calculated LDL 76 mg/dL (<100); Chloride 103 mmol/L (98-107); Cholesterol 146 mg/dL (<200); Estimated GFR 64.25 (mL/min/1.73m2); Glucose 84 mg/dL (74-106); HDL Cholesterol 54 mg/dL (40-60); Potassium 4.1 mmol/L (3.5-5.1); Sodium 140 mmol/L (136-145); Triglyceride 80 mg/dL (<150)
[2024-06-03 16:27] LABS: Uric Acid 7.5 mg/dL (3.5-7.2)
== END 2024-06-03 12:58 | disposition home or self-care (01) ==
LOC: NCHCN 12:57
PROVIDERS: PCP Family Medicine; Visit Provider Family Medicine
DX: Z00.00 Encounter for general adult medical examination without abnormal findings (principal); M10.9 Gout, unspecified
CPT/HCPCS: 80048; 80061; 84550